=== PATIENT | female | born 1995 | race African-American/Black ===

== ENCOUNTER 2017-06-08 08:02 | Emergency (ER) | payer OTHER ==
[~2017-06-08] VITALS: Ht 180.3 cm; Wt 97.6 kg
[2017-06-08 08:05] VITALS: BP 141/76; PULSE 84; RESP 16; TEMP 98.8; O2SAT 99
[2017-06-08] MEDS ORDERED: ACETAMINOPHEN 325 MG TAB PO ONE (08:30)
--- NOTE | 2017-06-08 08:33 | PD ---
HPI Chief Complaint: ENT Complaint Time Seen by Provider: 08:26 Travel History International Travel<30 days: No Contact w/Intl Traveler<30days: No Traveled to known affect area: No History of Present Illness HPI 21-year-old female presents with sore throat and general ill feeling since yesterday. She states she has not been around any sick contacts that she is aware of. She has not taken anything for her symptoms at today. She denies any high fevers or other concurrent complaints. She states she's had strep throat before so she wanted make sure that was not what was going on. PFSH Past Medical History Medical History: Denies Significant Hx Diminished Hearing: No Tetanus Vaccination: < 5 Years Influenza Vaccination: Yes ?: Not LMP: 05/24/17 Past Surgical History Other Surgery: Yes (bilat legs- achilles tendon repair) Social History Alcohol Use: Yes (occas. wine) Tobacco Use: No Allergies-Medications (Allergen,Severity, Reaction): Coded Allergies: No Known Allergies (Unverified , 06/08/17) Reported Meds & Prescriptions Reported Meds & Active Scripts Active No Active Prescriptions or Reported Medications Review of Systems Except as stated in HPI: all other systems reviewed are Neg Physical Exam Narrative General: No apparent distress, well appearing ENT: Posterior oropharyngx with erythema without exudate, uvula midline, external auditory canals are normal. Bilateral TM clear Neck: Neck is supple, no meningeal signs, trachea is midline Cardiovascular: Regular rate and rhythm Lungs: No increased respiratory effort noted, no wheezing noted Abdomen: Soft, NT, ND, no rebound or guarding Extremities: No edema Neuro: Awake, motor and sensation grossly intact, normal speech Data Data Last Documented VS Vital Signs Date Time Temp Pulse Resp B/P (MAP) Pulse Ox O2 Delivery O2 Flow Rate FiO2 06/08/17 08:11 16 06/08/17 08:05 98.8 84 141/76 (97) 99 Orders Orders Group A Rapid Strep Screen (06/08/17 08:30) Acetaminophen (Tylenol) (06/08/17 08:30) Strep Culture (Group A) (06/08/17 08:35) MDM Medical Decision Making Medical Screen Exam Complete: Yes Emergency Medical Condition: Yes Medical Record Reviewed: Yes (past history confirmed) Interpretation(s) strep is negative Differential Diagnosis Strep pharyngitis, upper respiratory infection, allergies Narrative Course Will check strep screen and dose with Tylenol and reevaluate strep is negative, all questions answered. Patient knows that follow up is incumbent on them and to return to the emergency room immediately if new or worsening symptoms develop. Patient given strict return precautions, vitals reviewed and are normal, agrees to further workup as an outpatient. Diagnosis Primary Impression: Upper respiratory infection Qualified Codes: J06.9 - Acute upper respiratory infection, unspecified Patient Instructions: General Instructions Additional Instructions: return as needed, tylenol and motrin as needed, follow with primary this week for recheck Med/Other Pt SpecificInfo: No Change to Meds Scripts No Active Prescriptions or Reported Meds Disposition: 01 DISCHARGE HOME Condition: Stable Angeles Connolly MD Jun 08, 2017 08:33
[2017-06-08] MEDS ORDERED: LIDOCAINE VISCOUS 2% SOLN 15 ML UDC SWISH-SPIT STA (09:55)
== END 2017-06-08 10:06 | disposition home or self-care (01) ==
LOC: PHEFT 08:02
DX: J06.9 Acute upper respiratory infection, unspecified (principal)
CPT/HCPCS: 86403; 87081; 87880; 99283